=== PATIENT | male | born 2005 | race African-American/Black ===

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

== ENCOUNTER 2023-01-13 19:52 | Emergency (ER) | payer OTHER ==
[2023-01-13] MEDS ORDERED: Ibuprofen 800 MG TAB ONE (20:34)
== END 2023-01-13 21:16 | disposition home or self-care (01) ==
LOC: MADERS 19:52
DX: S89.91XA Unspecified injury of right lower leg, initial encounter (principal); X58.XXXA Exposure to other specified factors, initial encounter